=== PATIENT | female | born 1995 | race Caucasian/White ===

== ENCOUNTER 2017-11-30 12:18 | Emergency (ER) | payer OTHER ==
[2017-11-30 12:23] VITALS: BP 129/89; PULSE 91; RESP 22; TEMP 98.2
[2017-11-30] MEDS ORDERED: ORPHENADRINE 30 MG/ML 2 ML VIAL IM STA (12:58)
[2017-11-30] MEDS ORDERED: KETOROLAC 30 MG/ML 1 ML VIAL IM STA (12:58)
[2017-11-30 13:29] LABS: Appearance,Urine Clear (Clear); Bilirubin,Urine Negative (Negative); Blood,Urine Small (Negative); Color,Urine Yellow; Glucose,Urine (UA) Negative (Negative); Ketones,Urine Negative (Negative); Leukocyte Esterase,Urine Negative (Negative); Mucus,Urine Rare /hpf; Nitrite,Urine Negative (Negative); Protein,Urine Negative (Negative); RBC,Urine 1 /hpf (0-5); Squamous Epithelial Cell,Urine 1 /hpf (0-4); Urobilinogen,Urine <2.0 mg/dL (<2.0); WBC,Urine <1 /hpf (0-5)
--- NOTE | 2017-11-30 13:45 | ED ---
General Adult HPI - General Chief complaint: Back Pain/Injury Stated complaint: back pain Time Seen by Provider: 11/30/17 12:46 Source: patient, RN notes reviewed Mode of arrival: wheelchair Limitations: no limitations - History of Present Illness Initial comments: 22-year-old female presents to the emergency department for a chief complaint of right-sided low back pain 2 months. Patient states she was lifting something at work when she felt a sudden pain and could not stand at that time. Patient states pain has been consistent since then. Patient states she went to the chiropractor 2 days ago in the pain has increased since that time. Patient states the pain is a sharp and aching pain. Patient states movement makes the pain worse. Patient denies any other injuries to the low back. Patient denies any fevers or chills, recent lumbar spine surgeries, or history of IV drug abuse. Patient denies any weakness in the lower extremities and states she is able to ambulate. Patient denies any shooting or radiating pain. Patient denies any numbness or tingling in the lower extremities. Patient denies any numbness or tingling in the groin or but not. Patient denies any bladder or bowel changes. Patient denies any urinary symptoms or abdominal pain. Patient denies any history of chronic steroid use or history of cancer. Patient has no other complaints at this time including shortness of breath, chest pain, abdominal pain, nausea or vomiting, headache, or visual changes. - Related Data Home Medications Medication Instructions Recorded Confirmed Albuterol Inhaler [Ventolin Hfa 1 - 2 puff INHALATION RT-Q6H PRN 01/03/16 Inhaler] Albuterol Nebulized [Ventolin 2.5 mg INHALATION RT-TID PRN 01/22/16 01/23/16 Nebulized] Previous Rx's Medication Instructions Recorded Azithromycin [Zithromax] 500 mg PO DAILY #5 tab 01/25/16 Budesonide-Formot 160-4.5 Mcg 2 puff INHALATION BID #1 inhaler 01/25/16 [Symbicort 160-4.5 Mcg Inhaler] Loratadine [Claritin] 10 mg PO DAILY #30 tab 01/25/16 Montelukast [Singulair] 10 mg PO HS #30 tab 01/25/16 predniSONE 10 mg PO DIRECTED #40 tab 01/25/16 Allergies Allergy/AdvReac Type Severity Reaction Status Date / Time amoxicillin Allergy Rash/Hives Verified 11/30/17 12:23 heparin Allergy Rash/Hives Verified 11/30/17 12:23 Penicillins Allergy Unknown Verified 11/30/17 12:23 Review of Systems ROS Statement: Those systems with pertinent positive or pertinent negative responses have been documented in the HPI. ROS Other: All systems not noted in ROS Statement are negative. Past Medical History Past Medical History: Asthma Additional Past Medical History / Comment(s): ovarian cysts History of Any Multi-Drug Resistant Organisms: None Reported Past Surgical History: Adenoidectomy, Tonsillectomy Additional Past Surgical History / Comment(s): sinus surgery Past Anesthesia/Blood Transfusion Reactions: No Reported Reaction Past Psychological History: No Psychological Hx Reported Smoking Status: Never smoker Past Alcohol Use History: None Reported Past Drug Use History: Marijuana - Past Family History Mother Family Medical History: No Reported History General Exam Limitations: no limitations General appearance: alert, in no apparent distress (Patient does appear to be in pain) Head exam: Present: atraumatic, normocephalic, normal inspection Eye exam: Present: normal appearance. Absent: scleral icterus, conjunctival injection ENT exam: Present: normal exam, mucous membranes moist Neck exam: Present: normal inspection, full ROM. Absent: tenderness, meningismus, lymphadenopathy Respiratory exam: Present: normal lung sounds bilaterally. Absent: respiratory distress, wheezes, rales, rhonchi, stridor Cardiovascular Exam: Present: regular rate, normal rhythm, normal heart sounds. Absent: systolic murmur, diastolic murmur, rubs, gallop, clicks GI/Abdominal exam: Present: soft, normal bowel sounds. Absent: distended, tenderness (No abdominal tenderness whatsoever), guarding, rebound, rigid Extremities exam: Present: normal capillary refill (Refill less than 2 seconds and PT pulse 2+ in lower extremities bilaterally.), other (Sensation intact in lower extremities bilaterally) Back exam: Present: tenderness (Right sided paraspinal tenderness. minimal lumbar spine tenderness and right-sided SI joint tenderness). Absent: full ROM (Patient has extension to neutral position and 45 of lumbar flexion. Patient is able to rotate bilaterally.), CVA tenderness (R) (No CVA tenderness noted), CVA tenderness (L) Neurological exam: Present: alert, oriented X3, CN II-XII intact Expanded Sensory exam: Lower Extremity Light Touch: Normal, Lower Extremity Pin Prick: Normal Motor strength exam: RLE: 5, LLE: 5 DTR: Patellar (R): 2+, Patellar (L): 2+ Eye Response: (4) open spontaneously Motor Response: (6) obeys commands Verbal Response: (5) oriented [place] Total: 15 Psychiatric exam: Present: normal affect, normal mood Skin exam: Present: warm, dry, intact, normal color. Absent: rash Course Vital Signs 11/30/17 12:19 Temperature 98.2 F Pulse Rate 91 Respiratory 22 Rate Blood Pressure 129/89 O2 Sat by Pulse 99 Oximetry Medical Decision Making - Medical Decision Making 22-year-old female with right-sided low back pain 2 months. Patient went to chiropractor yesterday and pain is increased since that time. Patient denies any numbness or weakness of the lower extremities. No bladder or bowel changes. No history of chronic steroid use or cancer. No history of IV drug abuse, fevers or chills, or recent lumbar spine surgery. On exam patient has full range of motion in lower extremities as well as full strength. Sensation intact. Neurovascular intact. Patient does have tenderness to the right low back including the right paraspinal muscles. Very mild vertebral tenderness in the lumbar area. X-ray was negative besides for possible scoliosis. Patient was given Toradol and Flexeril in the emergency department. Discussed case with Dr. Cronin. She'll be given a referral to orthopedics. She is to follow up with them as soon as possible. She is to take Motrin and Tylenol and discussed early ambulation. I did discuss returning to the emergency department if patient has any worsening symptoms or fevers. - Lab Data Lab Results 11/30/17 11/30/17 Range/Units 13:05 13:05 Urine Color Yellow Urine Appearance Clear (Clear) Urine pH 6.0 (5.0-8.0) Ur Specific [place] 1.020 (1.001-1.035) Urine Protein Negative (Negative) Urine Glucose (UA) Negative (Negative) Urine Ketones Negative (Negative) Urine Blood Small H (Negative) Urine Nitrite Negative (Negative) Urine Bilirubin Negative (Negative) Urine Urobilinogen <2.0 (<2.0) mg/dL Ur Leukocyte Esterase Negative (Negative) Urine RBC 1 (0-5) /hpf Urine WBC <1 (0-5) /hpf Ur Squamous Epith Cells 1 (0-4) /hpf Urine Mucus Rare H (None) /hpf Urine HCG, Qual Not Detected (Not Detectd) Disposition Clinical Impression: Back pain Disposition: HOME SELF-CARE Condition: Good Instructions: Acute Low Back Pain (ED), Lower Back Exercises (ED) Additional Instructions: Please take Motrin and Tylenol for pain. Please take muscle relaxers as needed. Please follow-up with orthopedics in one to 2 days. Return to the emergency department if you have any worsening symptoms. Is patient prescribed a controlled substance at d/c from ED?: No Referrals: Juanjo Marin MD [Primary Care Provider] - 1-2 days Varghese Valdez DO [Doctor of Osteopathic Medicine] - 1-2 days Time of Disposition: 15:04
--- NOTE | 2017-11-30 14:17 | XR ---
Lumbar spine HISTORY: Back pain 3 views of the lumbar spine There is a levoscoliosis centered at L3. Lumbar vertebral bodies show preserved height, alignment, an d bone mineralization. Disc spaces are maintained. IMPRESSION: Spinal curvature could be due to positioning, correlate. MRI may be of benefit.
== END 2017-11-30 15:21 | disposition home or self-care (01) ==
LOC: EC 12:18
DX: M54.5 Low back pain (principal); J45.909 Unspecified asthma, uncomplicated; Z88.0 Allergy status to penicillin; Z88.8 Allergy status to other drugs, medicaments and biological substances
CPT/HCPCS: 72100; 81001; 81025; 96372; 99283

== ENCOUNTER 2018-05-25 01:00 | Emergency (ER) | payer OTHER ==
[2018-05-25] MEDS ORDERED: LIDOCAINE 1% INJ 10MG/ML (20 ML MDV) SQ STA (03:36)
[2018-05-25] MEDS ORDERED: AZITHROMYCIN 500 MG TAB PO STA (03:37)
[2018-05-25] MEDS ORDERED: cefTRIAXone 250 MG VIAL IM STA (03:37)
[2018-05-25] MEDS ORDERED: ACETAMINOPHEN TAB 500 MG TAB PO STA (03:49)
--- NOTE | 2018-05-25 04:18 | ED ---
General Adult HPI - General Chief complaint: Urogenital Stated complaint: Vaginal infection Time Seen by Provider: 05/25/18 01:36 Source: patient, RN notes reviewed, old records reviewed Mode of arrival: ambulatory Limitations: no limitations - History of Present Illness Initial comments: 22-year-old female patient with no pertinent past medical history presents to ED with 2 days of left labial abscess. Patient reports that she was seen approximately one week ago at urgent care she was diagnosed with HSV, cellulitis, urinary tract infection. Patient reports that she finished her prescription of antibiotics. Patient reports that for 2 days she has a left labial abscess. Patient denies any other symptoms. Patient denies any dysuria. Patient states that she is not . Systemic: Pt denies fatigue, myalgia, fever/chills, rash. Pt denies weakness, night sweats, weight loss. Neuro: Pt denies headache, visual disturbances, syncope or pre-syncope. HEENT: Pt denies ocular discharge or irritation, otalgia, rhinorrhea, pharyngitis or notable lymphadenopathy. Cardiopulmonary: Pt denies chest pain, SOB, heart palpitations, dyspnea on exert ion. Abdominal/GI: Pt denies abdominal pain, n/v/d. : Pt denies dysuria, burning w/ urination, frequency/urgency. Denies new onset urinary or bowel incontinence. MSK: Pt denies myalgia, loss of strength or function in extremities. Neuro: Pt denies new onset weakness, paresthesias. - Related Data Home Medications Medication Instructions Recorded Confirmed Albuterol Inhaler [Ventolin Hfa 1 - 2 puff INHALATION RT-Q6H PRN 01/03/16 01/23/16 Inhaler] Albuterol Nebulized [Ventolin 2.5 mg INHALATION RT-TID PRN 01/22/16 01/23/16 Nebulized] Previous Rx's Medication Instructions Recorded Azithromycin [Zithromax] 500 mg PO DAILY #5 tab 01/25/16 Budesonide-Formot 160-4.5 Mcg 2 puff INHALATION BID #1 inhaler 01/25/16 [Symbicort 160-4.5 Mcg Inhaler] Loratadine [Claritin] 10 mg PO DAILY #30 tab 01/25/16 Montelukast [Singulair] 10 mg PO HS #30 tab 01/25/16 predniSONE 10 mg PO DIRECTED #40 tab 01/25/16 Sulfamethox-Tmp 800-160Mg [Bactrim 1 tab PO Q12HR #20 tab 05/25/18 DS 800-160 mg] Allergies Allergy/AdvReac Type Severity Reaction Status Date / Time amoxicillin Allergy Rash/Hives Verified 05/25/18 01:29 heparin Allergy Rash/Hives Verified 05/25/18 01:29 Penicillins Allergy Unknown Verified 05/25/18 01:29 Review of Systems ROS Statement: Those systems with pertinent positive or pertinent negative responses have been documented in the HPI. ROS Other: All systems not noted in ROS Statement are negative. Past Medical History Past Medical History: Asthma Additional Past Medical History / Comment(s): ovarian cysts, herpes History of Any Multi-Drug Resistant Organisms: None Reported Past Surgical History: Adenoidectomy, Tonsillectomy Additional Past Surgical History / Comment(s): sinus surgery Past Anesthesia/Blood Transfusion Reactions: No Reported Reaction Past Psychological History: No Psychological Hx Reported Smoking Status: Never smoker Past Alcohol Use History: None Reported Past Drug Use History: Marijuana - Past Family History Mother Family Medical History: No Reported History General Exam - General Exam Comments Initial Comments: Constitutional: NAD, AOX3, Pt has pleasant affect. HEENT: NC/AT, trachea midline, neck supple, no lymphadenopathy. Posterior pharynx non erythematous, without exudates. External ears appear normal, without discharge. Mucous membranes moist. Eyes PERRLA, EOM intact. There is no scleral icterus. No pallor noted. Cardiopulmonary: RRR, no murmurs, rubs or gallops, no JVD noted. Lungs CTAB in anterior and posterior palm. No peripheral edema. Abdominal exam: Abdomen soft and non-distended. Abdomen non-tender to palpation in all 4 quadrants. Bowel sounds active in LLQ. No hepatosplenomegaly. No ecchymosis Neuro: CN II-XII grossly intact. No nuchal rigidity. MSK: No posterior calf tenderness bilaterally, homans sign negative bilaterally. Posterior tibialis and radial pulse +2 bilaterally. Sensation intact in upper and lower extremities. Full active ROM in upper and lower extremities, 5/5 stregnth. Pelvic: Left labial abscess noted. I&D performed. Purulent drainage noted. Work catheter placed. Chaperoned by IRVIN Escoto. Limitations: no limitations Course Vital Signs 05/25/18 01:21 Temperature 98.6 F Pulse Rate 111 H Respiratory 18 Rate Blood Pressure 131/89 O2 Sat by Pulse 99 Oximetry Medical Decision Making - Medical Decision Making 22-year-old female patient with no pertinent past medical history presents to ED with 2 days of left labial abscess. Patient reports that she was seen approximately one week ago at urgent care she was diagnosed with HSV, cellulitis, urinary tract infection. Patient reports that she finished her prescription of antibiotics. Patient reports that for 2 days she has a left labial abscess. Patient denies any other symptoms. Patient denies any dysuria. Patient states that she is not . Patient vital signs stable, afebrile. Physical exam displayed: Left labial abscess noted. I&D performed. Purulent drainage noted. Work catheter placed. Chaperoned by IRVIN Escoto. Patient treated for gonorrhea/chlamydia with azithromycin and ceftriaxone. Patient to be discharged outpatient with Bactrim. Patient to follow up with primary care provider tomorrow. Patient return to ED if descends symptoms develop or condition worsens in any way. Case discussed and pt seen by Dr. Mahoney. Disposition Clinical Impression: Abscess Disposition: HOME SELF-CARE Condition: Stable Instructions (If sedation given, give patient instructions): Abscess (ED) Additional Instructions: Patient to adhere to previously discussed treatment plan and will take medication(s) as directed. Patient to follow up with PCP in 1-2 days. Patient to return to ED if symptoms do not improve. Please take medication as prescribed. Please follow-up with primary care provider tomorrow. Patient return to ER if condition worsens in any way. Prescriptions: Sulfamethox-Tmp 800-160Mg [Bactrim DS 800-160 mg] 1 tab PO Q12HR #20 tab Is patient prescribed a controlled substance at d/c from ED?: No Referrals: Juanjo Marin MD [Primary Care Provider] - 1-2 days
[2018-05-25 05:27] VITALS: BP 140/77; PULSE 78; RESP 18; TEMP 97.9
== END 2018-05-25 05:27 | disposition home or self-care (01) ==
LOC: EC 01:00
DX: N76.4 Abscess of vulva (principal); J45.909 Unspecified asthma, uncomplicated; Z88.0 Allergy status to penicillin; Z88.8 Allergy status to other drugs, medicaments and biological substances; Z87.440 Personal history of urinary (tract) infections; Z87.42 Personal history of other diseases of the female genital tract
CPT/HCPCS: 99283; 56405; 96372; J2001; J0696